=== PATIENT | female | born 1990 | race Two or more races ===

== ENCOUNTER 2019-11-12 20:39 | Emergency (ER) | payer SELFPAY ==
[~2019-11-12] VITALS: Ht 157.5 cm; Wt 86.2 kg
[2019-11-12] MEDS ORDERED: ONDANSETRON HCL/PF 4 MG/2 ML VIAL ONE (21:52)
[2019-11-12] MEDS ORDERED: HYDROMORPHONE 1 MG/1 ML DISP.SYRIN ONE (21:53)
[2019-11-12] MEDS ORDERED: ONDANSETRON HCL/PF 4 MG/2 ML VIAL IVP ONE (22:00)
[2019-11-12] MEDS ORDERED: HYDROMORPHONE INJ 2 MG/ML DISP.SYRIN IV ONE (22:00)
[2019-11-12] MEDS ORDERED: IV NS 0.9% 1,000 ML BAG IV ONE (22:00)
[2019-11-12 22:04] LABS: APPEARANCE,URINE Clear (CLEAR); BILIRUBIN,URINE Negative (NEGATIVE); BLOOD, URINE Small Ery/uL (NEGATIVE); COLOR,URINE Yellow (YELLOW); KETONES,URINE 40 (NEGATIVE); LEUKOCYTE ESTERASE ,URINE Negative (NEGATIVE); NITRITE, URINE Negative (NEGATIVE); PROTEIN,URINE Negative (NEGATIVE); UGLUCOSE Negative (NEGATIVE); UROBILINOGEN,URINE 0.2 EU/dL (0.2)
[2019-11-12 22:17] LABS: BASOPHILS # (AUTO) 0.1 /CMM (0.0-0.2); BASOPHILS % (AUTO) 1.2 % (0.0-2.0); HEMATOCRIT 30 % (33-45); HEMOGLOBIN 9.7 g/dL (11.5-14.8); LYMPHOCYTES # (AUTO) 2.6 /CMM (0.8-4.8); LYMPHOCYTES % (AUTO) 26.6 % (20.0-44.0); MEAN CORPUSCULAR HGB CONC 32 g/dl (31.0-36.0); MEAN CORPUSCULAR VOLUME 72 fL (82-100); MONOCYTES % (AUTO) 10.6 % (2.0-12.0); NEUTROPHILS # (AUTO) 5.6 /CMM (1.8-8.9); NEUTROPHILS % (AUTO) 58.6 % (43.0-81.0); PLATELET COUNT (AUTO) 349 /CMM (150-450); RED BLOOD CELL COUNT(AUTO) 4.22 MIL/uL (4.0-5.2); WHITE BLOOD COUNT (AUTO) 9.6 K/uL (4.3-11.0)
--- NOTE | 2019-11-12 22:20 | NUR ---
BIBSELF FROM HOME TO ER BED 11. AAOX4. NO RESP DISTRESS NOTED. AMBUALTORY. C/O GEN BODY PAIN DOMINANTLY ON GEN ABDOMEN AND BACK. PT REPORTS THAT SHE WAS WAS DOAGNOSED W/ SICKLE CELL 4 MONTHS AGO. PAIN IS RATED 9/10 WITH SENSATION OF ACHING. NOTED SWELLING ON THE RFA. REPORT NAUSEA. [place] [facility] AT BEDSIDE FOR EVAL. ORDERS RECEIVED NOTED AND CARRIED OUT. IV LINE OBTAINED ON THE JOCELYN 20G. BLOOD DRAWN AND GIVEN TO [employer] AT BEDSIDE.
[2019-11-12 22:28] LABS: CALCIUM, SERUM 8.9 mg/dL (8.5-10.1); CREATININE 0.9 mg/dL (0.6-1.3); POTASSIUM 3.4 mmol/L (3.5-5.1)
[2019-11-12 22:33] LABS: ALBUMIN 3.5 g/dL (3.4-5.0); BILIRUBIN,DIRECT 0.1 mg/dL (0.0-0.2); BILIRUBIN,TOTAL 0.2 mg/dL (0.2-1.0); TOTAL PROTEIN, SERUM 7.6 g/dL (6.4-8.2)
--- NOTE | 2019-11-12 22:53 | NUR ---
BACK FROM CT
[2019-11-12 22:57] LABS: BACTERIA,URINE Few /HPF (None Seen); SQUAMOUS EPITHELIAL CELL,UR Few /HPF (None Seen)
[2019-11-12] MEDS ORDERED: diphenhydrAMINE HCL 50 MG/ML VIAL IV ONE (23:30)
[2019-11-12] MEDS ORDERED: diphenhydrAMINE HCL 50 MG/ML VIAL ONE (23:31)
--- NOTE | 2019-11-13 00:16 | NUR ---
Patient discharged to home in stable condition. Written and verbal after care instructions given. Patient verbalizes understanding of instruction.IV removed. Catheter intact and site benign. Pressure and 4x4 applied to site. No bleeding noted. Pt ambulatory with a steady gait
[2019-11-13 00:17] VITALS: BP 118/75
== END 2019-11-13 00:21 | disposition home or self-care (01) ==
LOC: ER 20:39
DX: K59.00 Constipation, unspecified (principal); D57.80 Other sickle-cell disorders without crisis; R11.2 Nausea with vomiting, unspecified; Z90.49 Acquired absence of other specified parts of digestive tract; Z88.0 Allergy status to penicillin; Z88.6 Allergy status to analgesic agent
CPT/HCPCS: 36415; 74176; 80048; 80076; 81001; 83690; 84703; 85025; 85045; 85730; 87086; 96361; 96374; 96375; 99284; J1170; J1200; J2405; J7030; 81000-TC